=== PATIENT | male | born 1955 | race Caucasian/White ===

== ENCOUNTER 2018-09-05 23:44 | Emergency (ER) | payer BC ==
[~2018-09-05] VITALS: Ht 175.3 cm; Wt 88.6 kg
[2018-09-05 23:45] VITALS: BP 143/92
[2018-09-05] MEDS ORDERED: CLONI1TA PO (23:53)
[2018-09-05] MEDS ORDERED: LOVA40TA PO (23:53)
[2018-09-06] MEDS ORDERED: GLUCAGON FOR INJ 1 MG VIAL (J1610) IM STA (00:30)
== END 2018-09-06 01:15 | disposition home or self-care (01) ==
LOC: M ED 23:44
DX: T18.128A Food in esophagus causing other injury, initial encounter (principal); X58.XXXA Exposure to other specified factors, initial encounter; Y92.89 Other specified places as the place of occurrence of the external cause; I10 Essential (primary) hypertension; K21.9 Gastro-esophageal reflux disease without esophagitis; E78.5 Hyperlipidemia, unspecified; Z88.0 Allergy status to penicillin; Z79.899 Other long term (current) drug therapy